=== PATIENT | female | born 2000 | race Caucasian/White ===

== ENCOUNTER 2022-10-18 19:00 | Emergency (ER) | payer MEDICAID, OTHER ==
[2022-10-18 19:15] VITALS: BP 99/76
[2022-10-18] MEDS ORDERED: CLINDAMYCIN 150 MG CAPSULE PO STA (20:28)
--- NOTE | 2022-10-18 20:29 | ED Physician Documentation ---
History of Present Illness - Stated complaint Stated Complaint: ABSCESS - Chief complaint Chief Complaint: Wound - History obtained from History obtained from: Patient - History of Present Illness Timing: How many days ago (several) Pain level max: 2 Pain level now: 2 - Additonal information Additional information: Patient is a 22-year-old female who presents to the emergency department with a small area of redness and swelling to her back. Started about 2 days ago. She has had abscesses in the past. Concerned that this could be an abscess starting. She is visiting from [place]. No fevers. No chills. Nothing makes it better or worse. No drainage. Denies any possibility of . Review of Systems Constitutional: denies: Fever, Chills : denies: Now [facility] PAST MEDICAL HISTORY - Past Medical History Past Medical History: Yes Cardiovascular: Other Endocrine/Autoimmune: HyPOthyroidism Other Past Medical History: dormant clotting disorder, sathya danos syndrome, lupus, and cardiac valve disorder - Past Surgical History Past Surgical History: Yes General: Cholecystectomy - Present Medications Home Medications: Ambulatory Orders Medication Instructions Recorded Confirmed Aspirin Chewable [St Amos 81 mg PO DAILY 10/18/22 10/18/22 Aspirin] Ergocalciferol (Vitamin D2) 1,250 mcg ORAL ONCE 10/18/22 10/18/22 [Drisdol] Levothyroxine Sodium 25 mcg PO DAILY 10/18/22 10/18/22 [Levothyroxine] Loratadine [Claritin] 10 mg PO DAILY 10/18/22 10/18/22 Omeprazole 40 mg ORAL DAILY 10/18/22 10/18/22 buPROPion [Wellbutrin Sr] 100 mg PO BID 10/18/22 10/18/22 clindamycin HCL [Cleocin HCl] 300 mg PO Q6H #40 cap 10/18/22 lamoTRIgine [Lamictal] 150 mg PO BID 10/18/22 10/18/22 - Allergies Allergies/Adverse Reactions: Allergies Allergy/AdvReac Type Severity Reaction Status Date / Time amoxicillin [From Augmentin] Allergy Rash Verified 10/18/22 19:09 clavulanic acid Allergy Rash Verified 10/18/22 19:09 [From Augmentin] diphenhydramine Allergy Respiratory Verified 10/18/22 19:09 [From Benadryl] hydromorphone [From Dilaudid] Allergy Itching Verified 10/18/22 19:09 Sulfa (Sulfonamide Allergy Respiratory Verified 10/18/22 19:09 Antibiotics) zonisamide [From Zonegran] Allergy Unknown Verified 10/18/22 19:09 - Social History Does the pt smoke?: No Smoking Status: Never smoker Does the pt drink ETOH?: No Does the pt have substance abuse?: No PD ED PE NORMAL - Vitals Vital signs reviewed: Yes - General General: Alert and oriented X 3, No acute distress - Back Back: Other (L upper back - 2x2cm erythematous area, no induration, fluctuance or pustule.) - Derm Derm: Warm and dry - Neuro Neuro: Alert and oriented X 3 - Psych Psych: Normal mood, Normal affect Results - Vitals Vitals: Vital Signs - 24 hr 10/18/22 19:06 Temperature 36.9 C Heart Rate 82 Respiratory 16 Rate Blood Pressure 99/76 O2 Saturation 100 Oxygen O2 Source Room air PD Medical Decision Making - ED course Complexity details: considered differential, d/w patient ED course: Patient with what appears to be a small area of cellulitis. No abscess at this time. She has multiple antibiotic allergies. We will place her on oral antibiotics for home and have her follow-up with her doctor for further care. She can also return if she worsens. No indication for incision and drainage at this time. Patient counseled regarding signs and symptoms for which I believe and urgent re-evaluation would be necessary. Patient with good understanding of and agreement to plan and is comfortable going home at this time This document was made in part using voice recognition software. While efforts are made to proofread this document, sound alike and grammatical errors may occur. Departure - Departure Disposition: 01 Home, Self Care Clinical Impression: Abscess Cellulitis Qualifiers: Site of cellulitis: unspecified site Qualified Code(s): L03.90 - Cellulitis, unspecified Condition: Good Instructions: ED Staph Infec Abx Tx Only Follow-Up: your,doctor in 1 week if not better [Other] Prescriptions: clindamycin HCL [Cleocin HCl] 300 mg PO Q6H #40 cap Comments: Your prescriptions were sent to [facility] in [place]. Please take all antibiotics until gone. You can apply warm compresses to the area as well. Please return if you worsen. You should notice improvement in the next 24 to 48 hours. Discharge Date/Time: 10/18/22 20:36
== END 2022-10-18 20:36 | disposition home or self-care (01) ==
LOC: ED 19:00
DX: L03.312 Cellulitis of back [any part except buttock and flank] (principal); Z88.1 Allergy status to other antibiotic agents
CPT/HCPCS: 99282; 99283; A9270

== ENCOUNTER 2022-10-24 23:02 | Emergency (ER) | payer MEDICAID ==
[2022-10-24 23:27] VITALS: BP 141/92
[2022-10-25] MEDS ORDERED: HYDROcod/ACETAM 5/325 MG TABLET PO STA (01:32)
--- NOTE | 2022-10-25 01:35 | ED Physician Documentation ---
History of Present Illness - Stated complaint Stated Complaint: BACK PX, ABSCESS - Chief complaint Chief Complaint: General - History obtained from History obtained from: Patient - Additonal information Additional information: The patient comes to the emergency department chief complaint of worsening back pain, now with drainage, after being diagnosed with a cellulitis/small abscess several days ago. She states that now, she can feel drainage coming out and her bandage has been getting soaked. She states the pain is not really improving after several days of antibiotics. She denies fevers or chills, though does note she has been taking Tylenol. PD PAST MEDICAL HISTORY - Past Medical History Cardiovascular: Other Endocrine/Autoimmune: HyPOthyroidism - Past Surgical History Past Surgical History: Yes General: Cholecystectomy - Present Medications Home Medications: Ambulatory Orders Medication Instructions Recorded Confirmed Aspirin Chewable [St Amos 81 mg PO DAILY 10/18/22 10/18/22 Aspirin] Ergocalciferol (Vitamin D2) 1,250 mcg ORAL ONCE 10/18/22 10/18/22 [Drisdol] Levothyroxine Sodium 25 mcg PO DAILY 10/18/22 10/18/22 [Levothyroxine] Loratadine [Claritin] 10 mg PO DAILY 10/18/22 10/18/22 Omeprazole 40 mg ORAL DAILY 10/18/22 10/18/22 buPROPion [Wellbutrin Sr] 100 mg PO BID 10/18/22 10/18/22 clindamycin HCL [Cleocin HCl] 300 mg PO Q6H #40 cap 10/18/22 lamoTRIgine [Lamictal] 150 mg PO BID 10/18/22 10/18/22 clindamycin HCL [Clindamycin HCl] 300 mg PO Q8HR #12 cap 10/25/22 - Allergies Allergies/Adverse Reactions: Allergies Allergy/AdvReac Type Severity Reaction Status Date / Time amoxicillin [From Augmentin] Allergy Rash Verified 10/24/22 23:26 clavulanic acid Allergy Rash Verified 10/24/22 23:26 [From Augmentin] diphenhydramine Allergy Respiratory Verified 10/24/22 23:26 [From Benadryl] hydromorphone [From Dilaudid] Allergy Itching Verified 10/24/22 23:26 Sulfa (Sulfonamide Allergy Respiratory Verified 10/24/22 23:26 Antibiotics) zonisamide [From Zonegran] Allergy Unknown Verified 10/24/22 23:26 - Social History Does the pt smoke?: No Smoking Status: Never smoker Does the pt drink ETOH?: No Does the pt have substance abuse?: No PD ED PE NORMAL - Vitals Vital signs reviewed: Yes - General General: Alert and oriented X 3, No acute distress, Well developed/nourished, Other (Morbidly obese body habitus.) - HEENT HEENT: Atraumatic, PERRL, EOMI, Moist mucous membranes - Neck Neck: Supple, no meningeal sign - Respiratory Respiratory: No respiratory distress - Derm Derm: Warm and dry, Other (Area of minimal redness in the mid back but with an open and draining wound with constant output of purulent fluid. Diffuse tenderness of approximately 7 cm radius around the area. No fluctuance. ) - Extremities Extremities: No deformity - Neuro Neuro: Alert and oriented X 3 - Psych Psych: Normal mood, Normal affect Results - Vitals Vitals: Vital Signs - 24 hr 10/24/22 23:22 Temperature 36.4 C L Heart Rate 98 Respiratory 19 Rate Blood Pressure 141/92 H O2 Saturation 100 Oxygen O2 Source Room air - Labs Labs: Microbiology 10/24/22 12:10 Wound Culture - Preliminary Back - Upper Procedures - Abscess I&D (location) Back Preparation: Betadine, Lidocaine 1%, Marcaine 0.5% Incision: Incised with scalpel, Purulent drainage (Copious), Irrigated, Packed, Culture obtained Other: Pt tolerated well, Dressing applied, Antibiotic prescribed PD Medical Decision Making - ED course Complexity details: considered differential, d/w patient ED course: The patient was quite obese and it was unclear initially exactly how big the abscess was. However, copious purulent drainage was expressed from the incision, which was made at the area that was already draining. When the drainage seem to finally have been exhausted, the cavity was irrigated with 250 cc of 0.9 normal saline until the effluent contained no further purulence. The cavity was then packed with gauze packing and I prescribed another 4 days of antibiotics to give the patient a complete week on antibiotics after the I&D. We discussed wound care at home. The patient declined a prescription for anything narcotic and stated she would take ibuprofen and Tylenol for her discomfort. We have discussed the usual indications for return. The patient is here from out of town and will be returning home and about a month. Departure - Departure Disposition: 01 Home, Self Care Clinical Impression: Abscess Condition: Stable Instructions: ED Abscess IandD Prescriptions: clindamycin HCL [Clindamycin HCl] 300 mg PO Q8HR #12 cap Comments: A large amount of pus was evacuated from the abscess on your back tonight. This was necessary to allow the antibiotics to actually take effect. As such, we will restart the clock for your antibiotics today and a supplemental prescription for another several days of clindamycin has been electronically transmitted to the [facility] pharmacy in [place]. You have been given a dose of narcotic pain medication here in the emergency department. Please do not drive for the next 6 to 8 hours. Your abscess has been packed with a long, skinny strip of gauze, and this will need to be removed in about 3 days. Please have this done by medical professional, so your wound can be checked at that time. Once the gauze is removed, you may have your significant other rinse the abscess cavity with saline solution once or twice a day to help keep it clean from further infection while it continues to heal. Please take your antibiotics every day, as directed, until the course is complete. Forms: Activity restrictions Discharge Date/Time: 10/25/22 02:08
== END 2022-10-25 02:08 | disposition home or self-care (01) ==
LOC: ED 23:02
DX: L02.212 Cutaneous abscess of back [any part, except buttock and flank] (principal); E66.9 Obesity, unspecified; Z68.43 Body mass index [BMI] 50.0-59.9, adult
CPT/HCPCS: 10061; 87070; 87181; 87205; 99283; A9270

== ENCOUNTER 2022-10-28 18:49 | Emergency (ER) | payer BC, MEDICAID ==
[2022-10-28 19:07] VITALS: BP 129/77
--- NOTE | 2022-10-28 19:25 | ED Physician Documentation ---
History of Present Illness - Stated complaint Stated Complaint: ABSCESS - Chief complaint Chief Complaint: General - History obtained from History obtained from: Patient - History of Present Illness Timing: How many days ago (3) Pain level max: 2 Pain level now: 2 - Additonal information Additional information: 22-year-old female presents to the emergency department stating she had an incision and drainage of an abscess on her back 2 days ago. Here for packing removal. Her antibiotic was recently changed to doxycycline as her cultures came back resistant to multiple antibiotics, positive for MRSA. No fevers. No chills. Patient still states she is having a large amount of draining. Review of Systems Constitutional: denies: Fever, Chills Respiratory: denies: Cough GI: denies: Vomiting, Diarrhea Skin: denies: Rash Musculoskeletal: denies: Neck pain, Back pain Neurologic: denies: Headache PD PAST MEDICAL HISTORY - Past Medical History Past Medical History: Yes Cardiovascular: Other Endocrine/Autoimmune: HyPOthyroidism - Past Surgical History Past Surgical History: Yes General: Cholecystectomy - Present Medications Home Medications: Ambulatory Orders Medication Instructions Recorded Confirmed Aspirin Chewable [St Amos 81 mg PO DAILY 10/18/22 10/18/22 Aspirin] Ergocalciferol (Vitamin D2) 1,250 mcg ORAL ONCE 10/18/22 10/18/22 [Drisdol] Levothyroxine Sodium 25 mcg PO DAILY 10/18/22 10/18/22 [Levothyroxine] Loratadine [Claritin] 10 mg PO DAILY 10/18/22 10/18/22 Omeprazole 40 mg ORAL DAILY 10/18/22 10/18/22 buPROPion [Wellbutrin Sr] 100 mg PO BID 10/18/22 10/18/22 clindamycin HCL [Cleocin HCl] 300 mg PO Q6H #40 cap 10/18/22 lamoTRIgine [Lamictal] 150 mg PO BID 10/18/22 10/18/22 clindamycin HCL [Clindamycin HCl] 300 mg PO Q8HR #12 cap 10/25/22 - Allergies Allergies/Adverse Reactions: Allergies Allergy/AdvReac Type Severity Reaction Status Date / Time amoxicillin [From Augmentin] Allergy Rash Verified 10/28/22 19:07 clavulanic acid Allergy Rash Verified 10/28/22 19:07 [From Augmentin] diphenhydramine Allergy Respiratory Verified 10/28/22 19:07 [From Benadryl] hydromorphone [From Dilaudid] Allergy Itching Verified 10/28/22 19:07 Sulfa (Sulfonamide Allergy Respiratory Verified 10/28/22 19:07 Antibiotics) zonisamide [From Zonegran] Allergy Unknown Verified 10/28/22 19:07 - Social History Does the pt smoke?: No Smoking Status: Never smoker Does the pt drink ETOH?: No Does the pt have substance abuse?: No PD ED PE NORMAL - Vitals Vital signs reviewed: Yes - General General: Alert and oriented X 3, No acute distress - HEENT HEENT: Moist mucous membranes - Neck Neck: Supple, no meningeal sign - Respiratory Respiratory: No respiratory distress - Back Back: Other (Low thoracic abscess with packing in place, the packing was removed.) - Derm Derm: Warm and dry - Neuro Neuro: Alert and oriented X 3 - Psych Psych: Normal mood, Normal affect Results - Vitals Vitals: Vital Signs - 24 hr 10/28/22 19:01 Temperature 35.1 C L Heart Rate 95 Respiratory 18 Rate Blood Pressure 129/77 O2 Saturation 100 Oxygen O2 Source Room air PD Medical Decision Making - ED course Complexity details: considered differential, d/w patient ED course: Low thoracic abscess with packing in place, the packing was removed. Approximately 20 cc of pus drained immediately. The remainder of the pus was removed with gentle manipulation. Patient tolerated well. No indication for repacking at this time. We will have her continue the doxycycline and follow-up with her doctor. Patient counseled regarding signs and symptoms for which I believe and urgent re-evaluation would be necessary. Patient with good understanding of and agreement to plan and is comfortable going home at this time This document was made in part using voice recognition software. While efforts are made to proofread this document, sound alike and grammatical errors may occur. Departure - Departure Disposition: 01 Home, Self Care Clinical Impression: Abscess Condition: Good Instructions: ED Abscess IandD Follow-Up: your,doctor in 3 days for recheck [Other] Comments: Keep the wound clean. Get in the shower 2-3 times daily and allow warm water to rinse over the wound, this will encourage it to continue to drain. The drainage should decrease over the next 1 to 2 days. If you are still having pain and/or drainage in 2 to 3 days, please return for recheck. Please take all antibiotics until gone. Please return if you worsen.
== END 2022-10-28 19:35 | disposition home or self-care (01) ==
LOC: ED 18:49
DX: L02.212 Cutaneous abscess of back [any part, except buttock and flank] (principal); B95.62 Methicillin resistant Staphylococcus aureus infection as the cause of diseases classified elsewhere
CPT/HCPCS: 99281; 99282

== ENCOUNTER 2023-08-31 07:11 | Outpatient (CLI) | payer OTHER ==
[2023-08-31 11:51] LABS: BASOPHILS % (AUTO) 0.4 %; EOSINOPHILS % (AUTO) 0.4 %; HCT - HEMATOCRIT 44.2 % (37.0-47.0); HGB - HEMOGLOBIN 13.8 g/dL (12.0-16.0); LYMPHOCYTES # (AUTO) 3.2 10^3/uL (1.5-3.5); MEAN CORPUSCULAR HEMOGLOBIN 27.9 pg (27.0-31.0); MEAN CORPUSCULAR HGB CONC 31.2 g/dL (32.0-36.0); MEAN CORPUSCULAR VOLUME 89.3 fL (81.0-99.0); MEAN PLATELET VOLUME 10.1 fL (7.9-10.8); MONOCYTES # (AUTO) 0.6 10^3/uL (0.0-1.0); MONOCYTES % (AUTO) 6.1 %; NEUTROPHILS # (AUTO) 5.1 10^3/uL (1.5-6.6); NEUTROPHILS % (AUTO) 56.9 %; PLT - PLATELET COUNT 385 10^3/uL (130-450); RED BLOOD COUNT 4.95 10^6/uL (4.20-5.40); RED CELL DISTRIBUTION WIDTH 12.8 % (12.0-15.0)
[2023-08-31 12:10] LABS: ALBUMIN 4.4 g/dL (3.2-5.5); ALBUMIN/GLOBULIN RATIO 1.3 (1.0-2.2); ALKALINE PHOSPHATASE 56 IU/L (42-121); ALT ALANINE AMINOTRANSFERASE 58 IU/L (10-60); AST ASPARTATE AMINOTRANSFERASE 44 IU/L (10-42); BILIRUBIN,TOTAL 0.9 mg/dL (0.2-1.0); BUN - BLOOD UREA NITROGEN 12 mg/dL (6-20); CARBON DIOXIDE - CO2 29 mmol/L (21-32); CHLORIDE 100 mmol/L (101-111); CHOL/HDL RATIO 4.5 (<4.4); CHOLESTEROL 197 mg/dL; GFR - MDRD 68 (>89); GLUCOSE 83 mg/dL (74-104); HDL CHOLESTEROL 44 mg/dL; LDL CHOLESTEROL,CALCULATED 131 mg/dL; POTASSIUM 3.8 mmol/L (3.5-4.5); SODIUM 137 mmol/L (135-145); TOTAL PROTEIN 7.9 g/dL (6.4-8.9); TRIGLYCERIDES 109 mg/dL (48-352); VLDL CHOLESTEROL 22 mg/dL
[2023-08-31 12:25] LABS: THYROID STIMULATING HORMONE 7.03 uIU/mL (0.34-5.60)
== END 2023-08-31 07:12 | disposition home or self-care (01) ==
LOC: LAB.N 07:11
PROVIDERS: ATTEND Family Medicine
DX: E03.9 Hypothyroidism, unspecified (principal); K21.9 Gastro-esophageal reflux disease without esophagitis; F39 Unspecified mood [affective] disorder
CPT/HCPCS: 36415; 80053; 80061; 83721; 84439; 84443; 85025

== ENCOUNTER 2023-10-12 07:34 | Outpatient (CLI) | payer OTHER ==
--- NOTE | 2023-10-12 16:50 | XRAY Report ---
PROCEDURE: Knee 3V LT INDICATIONS: PAIN IN LEFT KNEE TECHNIQUE: 3 views of the knee(s) were acquired. COMPARISON: None. FINDINGS: Bones: No fractures or dislocations. No suspicious bony lesions. A small intercondylar osteophyte s. Soft tissues: No knee joint effusion. No suspicious soft tissue calcifications or masses. IMPRESSION: No acute bony abnormality. If there remains a high clinical concern for fracture, consider cross-sect ional imaging now. If pain persists, consider repeat x-ray in 10-14 days or cross-sectional imaging. Mild degenerative change. Reviewed by: Gladys Rajput MD on 10/12/2023 4:48 PM PDT Approved by: Gladys Rajput MD on 10/12/2023 4:48 PM PDT Station ID: [id number]
== END 2023-10-12 07:35 | disposition home or self-care (01) ==
LOC: DI.N 07:34
PROVIDERS: ATTEND Physician Assistant Medical
DX: M17.12 Unilateral primary osteoarthritis, left knee (principal)